=== PATIENT | female | born 1995 | race Caucasian/White ===

== ENCOUNTER 2016-10-12 10:04 | Inpatient (IN) ==
--- NOTE | 2016-10-12 10:32 | EKG Report ---
Test Performed on : 10/12/2016 10:29:15 AM Test Reason : Syncope/SZ Blood Pressure : / mmHG Vent. Rate : 124 BPM Atrial Rate : 124 BPM P-R Int : 136 ms QRS Dur : 084 ms QT Int : 406 ms P-R-T Axes : 058 -17 049 degrees QTc Int : 583 ms Sinus tachycardia. Nonspecific T wave abnormality Abnormal ECG When compared with ECG of 30-JAN-2016 21:51, Sinus rhythm. has replaced Ectopic atrial rhythm. Vent. rate has increased BY 61 BPM Nonspecific T wave abnormality now evident in Lateral leads Unconfirmed Result
[2016-10-12] MEDS ORDERED: MAGNESIUM SULFATE 2 GM/S.W.I. 2 GM/50 ML IVPB IV ONE (10:42)
[2016-10-12] MEDS ORDERED: NS 1,000 ML IV ONE (10:42)
--- NOTE | 2016-10-12 11:08 | ED EKG INTERP ---
This chart was entered by Vera Pandey Scribe, acting as scribe for Yfn Leon MD. EKG Interpretation - EKG Time of EKG reading by physician:: 10:29 EKG Read and Signed by:: Yfn Leon EKG Interpretation (*Must complete 3 of following elements*): Abnormal Rate: 124 Rhythm: sinus tachycardia [place]: normal QRS: normal [place] Interval: normal ST Wave: non-specific ST changes Comments: nonspecific T wave abnormality - QT prolongation Attestation - Physician/ TEGAN Attestation Patient care was provided by Advanced Practice Provider:: No The physician spent face to face time with patient:: Yes Advanced Practice Provider documentation review:: Supervising physician onsite and consulted in the evaluation and care of this patient. The physician did have a face to face encounter with the patient. This chart was documented by the indicated scribe, (Vera Pandey Scribe) and accurately reflects the services I performed and decisions made by me, Yfn Leon MD, as attested by the provider's signature.
[2016-10-12 11:09] LABS: MANUAL DIFF NEEDED? NO
--- NOTE | 2016-10-12 11:27 | Diag Imaging Result Doc PS360 ---
EXAM: CHEST-PORTABLE HISTORY: CP TECHNIQUE: Portable AP COMPARISON: 01/30/2012 FINDINGS: The lungs are well expanded. The heart is not enlarged. The vessels are not distended. There are no infiltrates. No pleural effusions identified. IMPRESSION: Negative chest. Electronically signed by Al Sr 10/12/2016 11:25 AM
[2016-10-12 11:28] LABS: URINE CULTURE PL NEEDED? NO
[2016-10-12 11:30] LABS: AGAP 10; ALBUMIN 4.8 g/dL (3.5-5.0); ALKALINE PHOSPHATASE 117 U/L (32-104); BUN 12 mg/dL (8-22); CALCIUM 9.4 mg/dL (8.8-10.2); CHLORIDE 103 mmol/L (98-107); CK PROFILE 59 U/L (24-173); COSMO 275; GOT 20 U/L (10-30); GPT 24 U/L (10-36); MAGNESIUM 1.8 mg/dL (1.5-2.7); POTASSIUM 3.6 mmol/L (3.5-5.1); SODIUM 138 mmol/L (136-145); TCO2 25 mmol/L (25-35); TOTAL PROTEIN 8.3 g/dL (6.3-8.3)
[2016-10-12 11:33] LABS: BILIRUBIN URINE NEGATIVE (NEGATIVE); BLOOD URINE NEGATIVE (NEGATIVE); CLARITY CLEAR (CLEAR); COLOR YELLOW; GLUCOSE URINE NEGATIVE (NEGATIVE); LEUKOCYTES URINE NEGATIVE (NEGATIVE); NITRITE URINE NEGATIVE (NEGATIVE); PROTEIN URINE NEGATIVE (NEGATIVE); UROBILINOGEN URINE NORMAL
[2016-10-12 11:35] LABS: URINE EPITHELIAL CELLS <10 /HPF (<10); URINE RBC <10 /HPF (<10)
[2016-10-12 11:36] LABS: UR AMPHETAMINES QUAL NONE DETECTED (NONE DETECT); UR BARBITUATES QUAL NONE DETECTED (NONE DETECT); UR BENZODIAZEPIN QUAL NONE DETECTED (NONE DETECT); UR CANNABINOIDS QUAL NONE DETECTED (NONE DETECT); UR COCAINE QUAL NONE DETECTED (NONE DETECT); UR MDMA QUAL NONE DETECTED (NONE DETECT); UR METHADONE QUAL NONE DETECTED (NONE DETECT); UR METHAMPHETAMINE QUAL NONE DETECTED (NONE DETECT); UR OPIATES QUAL NONE DETECTED (NONE DETECT); UR OXYCODONE QUAL NONE DETECTED (NONE DETECT); UR PCP QUAL NONE DETECTED (NONE DETECT); UR TCA QUAL NONE DETECTED (NONE DETECT)
[2016-10-12 11:55] LABS: INR 0.95 (0.86-1.15); PROTIME 13.4 Seconds (12.1-15.5)
[2016-10-12 11:56] LABS: PTT PL 29.6 Seconds (22.6-43.9)
[2016-10-12 11:59] LABS: URINE SOURCE CLEAN CATCH
[2016-10-12 12:14] LABS: HEMATOCRIT 40.2 % (37.0-47.0); HEMOGLOBIN 14.3 g/dL (12.0-16.0); MCHC 35.6 g/dL (33-37); MCV 85.2 FL (81-99); RBC 4.72 XMIL (4.2-5.4)
[2016-10-12 12:16] LABS: MCH 30.3 PG (27-31); PLT 249 X1000 (130-400)
[2016-10-12 12:18] LABS: MPV 8.7 FL (7.4-10.4)
[2016-10-12 12:19] LABS: LYMPH% 12.2 % (20.5-51.1)
[2016-10-12 12:20] LABS: MONO% 5.8 % (1.7-9.3)
--- NOTE | 2016-10-12 12:52 | EKG Report ---
Test Performed on : 10/12/2016 12:44:10 PM Test Reason : Palpitations, QT prolongation Blood Pressure : / mmHG Vent. Rate : 110 BPM Atrial Rate : 110 BPM P-R Int : 154 ms QRS Dur : 088 ms QT Int : 340 ms P-R-T Axes : 058 -16 047 degrees QTc Int : 460 ms Sinus tachycardia. Septal infarct , age undetermined Abnormal ECG When compared with ECG of 12-OCT-2016 10:29, No significant change was found Unconfirmed Result
--- NOTE | 2016-10-12 13:05 | ED EKG INTERP ---
This chart was entered by Vera Pandey Scribe, acting as scribe for Yfn Leon MD. EKG Interpretation - EKG # 2 Time of EKG reading by physician:: 12:44 EKG Read and Signed by:: Yfn Leon EKG Interpretation (*Must complete 3 of following elements*): Abnormal Rate: 110 Rhythm: sinus tachycardia [place]: normal QRS: normal [place] Interval: normal ST Wave: normal Comments: septal infarct, age undetermined - repeat EKG - improving. Attestation - Physician/ TEGAN Attestation Patient care was provided by Advanced Practice Provider:: No The physician spent face to face time with patient:: Yes Advanced Practice Provider documentation review:: Supervising physician onsite and consulted in the evaluation and care of this patient. The physician did have a face to face encounter with the patient. This chart was documented by the indicated scribe, (Vera Pandey Scribe) and accurately reflects the services I performed and decisions made by me, Yfn Leon MD, as attested by the provider's signature.
--- NOTE | 2016-10-12 13:07 | PROVIDER DOCUMENTATION ---
This chart was entered by Vera Pandey Scribe, acting as scribe for Yfn Leon MD. HPI-Neurological Disorder - General Chief Complaint: Seizure Stated Complaint: HAD A SEIZURE WHILE AT WORK Time Seen by Provider: 10/12/16 10:17 Source: patient Allergies/Adverse Reactions: Patient Allergies Allergy/AdvReac Type Severity Reaction Status Date / Time Sulfa (Sulfonamide Allergy ABDOMINAL Verified 01/30/16 21:27 Antibiotics) PAIN STEROIDS AdvReac HIVES Uncoded 10/12/16 10:12 Home Medications: Home Medication List Medication Instructions Recorded Confirmed Last Taken Type NK [No Home Medications] 10/12/16 10/12/16 Unknown History - History of Present Illness-Neuro Nature of Presenting Problem: Patient is a 21 year old female who presents in the ED with complaints of seizure. She states she has a history of seizures, but states she is no longer on medication for them per her neurologist. She also states she was taking Depakote but "had chunks of her stomach lining coming up while taking it as well as a strange sensation in her throat." She reports she was at work this morning when her coworkers saw her staring out into space and then suddenly began crying, and reports this is not typical of her usual seizures. She also reports she did not fall when she seized but was caught by a coworker before she could fall. She denies any other symptoms. Headache Location: denies: frontal, temporal, occipital, parietal, global, other Severity: reports: moderate Onset/Duration: reports: abrupt, just prior to arrival Timing: reports: gone now Context: reports: seizure activity Character of Altered Mental Status: denies: N/A, disoriented, unchanged from baseline, confused, combative, agitated, trouble concentrating, unresponsive, seizure activity, decreased responsiveness, other Any recent trauma/injury?: denies: none, minor, major, to head, to neck, other Character of Deficits: denies: new weakness, altered sensation, vision problem/ glaucoma, impaired speech, impaired swallowing, decreased ability to stand, decreased ability to walk, falling New weakness or altered sensation location:: denies: none, RUE, RLE, LUE, LLE, right facial, left facial, general (diffuse), ascending, other Cognitive Baseline: alert, oriented x3 Gait Baseline: walks without assistance Associated Symptoms: reports: denies symptoms Similar Symptoms Previously?: Yes (hx of seizures) Recently seen or treated by another doctor?: No - Seizure First time to have a seizure?: No Witnessed seizure?: Yes How many seizure episodes?: 1 Duration of episode? (mins): 1 Episode details: denies: unknown duration, unknown number, details of seizure cannot be obtained, details of seizure cannot be verified Episode Frequency: occasional episodes Preceding symptoms/context:: none Character of Seizure: reports: staring Post-ictal Symptoms: reports: none Seizure related injury: none Review of Systems - Adult - REVIEW OF SYSTEMS - ADULT Constitutional: reports: no symptoms reported Eyes: reports: no symptoms reported Ears, Nose, Mouth & Throat: reports: no symptoms reported Cardiovascular: reports: no symptoms reported Respiratory: reports: no symptoms reported Gastrointestinal: reports: no symptoms reported Genitourinary: reports: no symptoms reported Musculoskeletal: reports: no symptoms reported Integumentary: reports: no symptoms reported Neurological: reports: seizure Psychiatric: reports: no symptoms reported Endocrine: reports: no symptoms reported Hematologic/Lymphatic: reports: no symptoms reported Allergic/Immunologic: reports: no symptoms reported All Other Systems: Reviewed and Negative Past History - Adult - PAST MEDICAL HISTORY-ADULT Review of Records: reports: Old Records Reviewed, Nursing Assessment Review, Medications Reviewed Major Childhood Illnesses: reports: denies history Cardiovascular: reports: denies history Respiratory: reports: denies history Gastrointestinal: reports: ulcer Obstetrical/Gynecological: reports: denies history Genitourinary: reports: denies history Musculoskeletal: reports: denies history Neurological: reports: headaches/migraines, Seizures/Epilepsy Psychiatric: reports: anxiety, ptsd, other (panic attacks) Endocrine/Immune: reports: denies history Other Conditions: reports: denies history - PRIOR SURGERIES/PROCEDURES Surgical/Procedure History: reports: other (oral surgery, cyst in neck removed) - IMMUNIZATION STATUS Childhood Immunizations: See Nurse Assessment Flu Vaccine: See Nurse Assessment - FAMILY HISTORY Family History: reviewed, not pertinent - SOCIAL HISTORY Smoking: denies Substance Use: none/never Alcohol Use Frequency: never Living Situation: family Physical Exam- Neurological - Physical Exam-Neuro Initial Vital Signs Reviewed: Yes General Appearance: alert, no apparent distress Eye Exam: bilateral eye: normal inspection, PERRL, EOMI HENMT: normocephalic/atraumatic, moist mucous membranes Head Injury: no evidence of injury Neck: non-tender, full range of motion, supple, normal inspection Respiratory: chest non-tender, lungs clear, normal breath sounds, no pleuratic chest pain, no respiratory distress, no accessory muscle use Cardiovascular: normal peripheral pulses, no edema, no gallop, no JVD, no murmur , tachycardia Abdominal Exam: non tender, soft, no organomegaly, no pulsatile mass Lymphatic: no adenopathy Extremity: normal range of motion, non-tender, no pedal edema, no calf tenderness, pelvis stable notereader Exam: normal hearing, normal speech, PERRL Coordination/Gait: normal finger to nose, normal gait Motor/Sensory: no motor deficit, no sensory deficit, no pronator drift Neurologic: grossly normal, no motor/sensory deficits Integumentary: normal color, normal turgor, warm/dry Psych/Mental Status: normal mood/affect, normal thought content, normal thought process, oriented x 3 - Glascow Coma Scale Best Eye Response: (4) open spontaneously Best Verbal Response: (5) oriented Best Motor Response: (6) obeys commands Total Glascow Score: 15 Progress - PLAN OF CARE/RESULTS Progress/Plan/Lab Results: Vital Signs - 8 hr 10/12/16 10:06 10/12/16 11:19 10/12/16 11:50 Temperature 97.6 F Pulse Rate 117 H 123 H 120 H Respiratory Rate 20 16 19 Blood Pressure 141/096 136/89 125/81 O2 Sat by Pulse Oximetry 96 99 100 10/12/16 12:26 10/12/16 12:43 10/12/16 12:59 Temperature Pulse Rate 110 H 112 H 109 H Respiratory Rate 14 16 14 Blood Pressure 121/72 116/79 134/85 O2 Sat by Pulse Oximetry 100 99 100 Laboratory Results - last 24 hr 10/12/16 10/12/16 10/12/16 11:04 11:04 11:04 WBC RBC Hgb Hct MCV MCH MCHC RDW Std Deviation Plt Count MPV Neut % (Auto) Lymph % (Auto) [place] % (Auto) Eos % (Auto) Baso % (Auto) Neut # (Auto) Lymph # (Auto) [place] # (Auto) Eos # (Auto) Baso # (Auto) PT INR APTT (Factor Assay) D-Dimer Sodium 138 Potassium 3.6 Chloride 103 Carbon Dioxide 25 Anion Gap 10 BUN 12 Creatinine 0.6 Estimated GFR/1.73 m2 > 60 BUN/Creatinine Ratio 20 Glucose 94 Calculated Osmolality 275 Calcium 9.4 Magnesium 1.8 Total Bilirubin 0.20 AST 20 ALT 24 Alkaline Phosphatase 117 H Creatine Kinase 59 Troponin T < 0.010 Odl-R-Ylcjerbnxpl Pept 32 Total Protein 8.3 Albumin 4.8 Globulin 4.0 Albumin/Globulin Ratio 1.0 Urine Source Urine Color Urine Clarity Urine pH Ur Specific [place] Urine Protein Urine Ketones Urine Blood Urine Nitrite Urine Bilirubin Urine Urobilinogen Urine Microscopic RBC Urine WBC Ur Epithelial Cells Urine Bacteria Urine Glucose Urine Test Urine Opiates Screen Ur Oxycodone Screen Urine Methadone Screen Ur Barbituates Screen Ur Tricyclics Screen Ur Phencyclidine Scrn Ur Amphetamines Screen U Methamphetamines Scrn Urine MDMA Screen U Benzodiazepines Scrn Urine Cocaine Screen U Cannabinoids Screen 10/12/16 10/12/16 10/12/16 11:04 11:04 11:25 WBC 6.50 RBC 4.72 Hgb 14.3 Hct 40.2 MCV 85.2 MCH 30.3 MCHC 35.6 RDW Std Deviation 12.4 Plt Count 249 MPV 8.7 Neut % (Auto) 82.0 H Lymph % (Auto) 12.2 L [place] % (Auto) 5.8 Eos % (Auto) Not Reportable Baso % (Auto) Not Reportable Neut # (Auto) 5.30 Lymph # (Auto) 0.80 L [place] # (Auto) 0.40 Eos # (Auto) Not Reportable Baso # (Auto) Not Reportable PT 13.4 INR 0.95 APTT (Factor Assay) 29.6 D-Dimer < 0.22 L Sodium Potassium Chloride Carbon Dioxide Anion Gap BUN Creatinine Estimated GFR/1.73 m2 BUN/Creatinine Ratio Glucose Calculated Osmolality Calcium Magnesium Total Bilirubin AST ALT Alkaline Phosphatase Creatine Kinase Troponin T Lwv-K-Msyuemrfzes Pept Total Protein Albumin Globulin Albumin/Globulin Ratio Urine Source CLEAN CATCH Urine Color YELLOW Urine Clarity CLEAR Urine pH 6.0 Ur Specific [place] 1.010 Urine Protein NEGATIVE Urine Ketones NEGATIVE Urine Blood NEGATIVE Urine Nitrite NEGATIVE Urine Bilirubin NEGATIVE Urine Urobilinogen NORMAL Urine Microscopic RBC <10 Urine WBC NEGATIVE Ur Epithelial Cells <10 Urine Bacteria 1+ Urine Glucose NEGATIVE Urine Test Urine Opiates Screen Ur Oxycodone Screen Urine Methadone Screen Ur Barbituates Screen Ur Tricyclics Screen Ur Phencyclidine Scrn Ur Amphetamines Screen U Methamphetamines Scrn Urine MDMA Screen U Benzodiazepines Scrn Urine Cocaine Screen U Cannabinoids Screen 10/12/16 10/12/16 11:25 11:25 WBC RBC Hgb Hct MCV MCH MCHC RDW Std Deviation Plt Count MPV Neut % (Auto) Lymph % (Auto) [place] % (Auto) Eos % (Auto) Baso % (Auto) Neut # (Auto) Lymph # (Auto) [place] # (Auto) Eos # (Auto) Baso # (Auto) PT INR APTT (Factor Assay) D-Dimer Sodium Potassium Chloride Carbon Dioxide Anion Gap BUN Creatinine Estimated GFR/1.73 m2 BUN/Creatinine Ratio Glucose Calculated Osmolality Calcium Magnesium Total Bilirubin AST ALT Alkaline Phosphatase Creatine Kinase Troponin T Aou-Y-Vlujclbawpj Pept Total Protein Albumin Globulin Albumin/Globulin Ratio Urine Source Urine Color Urine Clarity Urine pH Ur Specific [place] Urine Protein Urine Ketones Urine Blood Urine Nitrite Urine Bilirubin Urine Urobilinogen Urine Microscopic RBC Urine WBC Ur Epithelial Cells Urine Bacteria Urine Glucose Urine Test NEGATIVE Urine Opiates Screen NONE DETECTED Ur Oxycodone Screen NONE DETECTED Urine Methadone Screen NONE DETECTED Ur Barbituates Screen NONE DETECTED Ur Tricyclics Screen NONE DETECTED Ur Phencyclidine Scrn NONE DETECTED Ur Amphetamines Screen NONE DETECTED U Methamphetamines Scrn NONE DETECTED Urine MDMA Screen NONE DETECTED U Benzodiazepines Scrn NONE DETECTED Urine Cocaine Screen NONE DETECTED U Cannabinoids Screen NONE DETECTED Orders Category Date Time Status Cardiac Monitoring DIRECTED Care 10/12/16 10:46 Active Saline Loc NOW Care 10/12/16 10:46 Active CHEST-PORTABLE [RAD] Stat Exams 10/12/16 10:42 Completed CBC WITH ELECTRONIC DIFF [HEME] Stat Lab 10/12/16 11:04 Completed CK PROFILE [SP CHEM] Stat Lab 10/12/16 11:04 Completed COMPREHENSIVE METABOLIC PANEL [CHEM] Stat Lab 10/12/16 11:04 [address] D-DIMER PL [COAG] Stat Lab 10/12/16 11:04 Completed MAGNESIUM [CHEM] Stat Lab 10/12/16 11:04 Completed TEST-URINE [PREG] Stat Lab 10/12/16 11:25 Completed PRO B-NATRIURETIC PEPTIDE Stat Lab 10/12/16 11:04 Completed PR[address]IME WITH INR PL [COAG] Stat Lab 10/12/16 11:[address] [COAG] Stat Lab 10/12/16 11:04 Completed TROPONIN T Stat Lab 10/12/16 11:04 Completed UDS [URINE DRUG SCREEN PL] Stat Lab 10/12/16 11:[address] W/POSS RFLX CULT [URINALYSIS] Stat Lab 10/12/16 11:25 Completed 0.9% Sodium Chloride Inj [Ns] 1,000 ml Med 10/12/16 10:42 Discontinued IV 999 mls/hr Magnesium Sulfate 2 gm/S.w.i. [Magnesium Sulfate 2 gm/S Med 10/12/16 10:42 Discontinued .w.i] 2 gm in 50 ml IV NOW EKG [EKG] Stat Ther 10/12/16 10:20 Draft EKG [EKG] Stat Ther 10/12/16 12:41 Draft Result Diagrams: 10/12/16 11:04 10/12/16 11:04 - REASSESSMENT Reassessment #1 Time Reassessed: 13:05 Status: improving (Pt feels better, asymptomatic since ED arrival. Repeated EKG showed the prolonged QT resolving after 1L NS IV and 2gm of Magnesium.) - XRAY 1 XRAY Study: Chest Impression: Normal XRAY Interpretation: negative chest - CONSULTS/PCP/HOSPITALIST Notification #1 *Consult/PCP/Hospitalist*: Dr. Cabrera Time Discussed: 13:06 Consult Disposition: Will see in ED, Admit Departure - Departure Date of Disposition Decision: 10/12/16 Time of Disposition Decision: 13:00 DIAGNOSIS: Syncope, QT prolongation Disposition: ADMITTED INPATIENT 09 Certified Medical Emergency: Emergent Condition: Stable Referrals and Follow-Ups: None,PCP [Primary Care Provider] - - Critical Care Note This patient required my direct & personal management of CC.: No Attestation - Physician/ TEGAN Attestation Patient care was provided by Advanced Practice Provider:: No The physician spent face to face time with patient:: Yes Advanced Practice Provider documentation review:: Supervising physician onsite and consulted in the evaluation and care of this patient. The physician did have a face to face encounter with the patient. This chart was documented by the indicated scribe, (Vera Pandey Scribe) and accurately reflects the services I performed and decisions made by me, Yfn Leon MD, as attested by the provider's signature.
[2016-10-12] MEDS ORDERED: NAPROSYN PO PRN (15:59)
--- NOTE | 2016-10-12 16:34 | HISTORY AND PHYSICAL ---
CHIEF COMPLAINT: Syncope. HISTORY OF PRESENT ILLNESS: This is a 21-year-old, female who presented to the emergency room after having a witnessed syncopal attack. 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 She was sitting at the desk, and it was reported that she "just had a blank stare on her face, and did not answer ". After a short time, she was able to answer. She had no seizure activity noted. She does report having intermittent episodes like this at home , where she states that her chest will feel real tight, it will feel full. She can feel that fullness going up into her throat, then her heart rate speeds up and, if she does not sit down, she will pass out. It does resolve spontaneously. Her first EKG revealed sinus tachycardia at 124, with a QTc of 583. he was given magnesium 2 g IV , with repeat EKG having a QTc of 460. Shortly after being admitted on the floor, she was placed on telemetry, and she had another witnessed episode of "blanking out" while lying in the bed. Telemetry revealed sinus tachycardia at a rate of 120, and then it did increase to 175 and 185 at the time that she did not respond. This lasted about 1-1/2 minutes, and heart rate dropped back down to the 140's to 150's, and she was alert and oriented. PAST MEDICAL HISTORY: Seizures during , migraines, history of stomach ulcers, PTSD. PAST SURGICAL HISTORY: Tonsillectomy, oral surgery. SOCIAL HISTORY: She denies alcohol, tobacco, or illicit drug use. ALLERGIES: Sulfa, which causes abdominal pain, and steroids which cause hives. HOME MEDICATIONS: None. REVIEW OF SYSTEMS: A 14-point review of systems is discussed with patient, with pertinent positives stated in the HPI. She denied shortness of breath, cough, fever, chills, PND, orthopnea, nausea, vomiting, diarrhea, constipation, black or bloody vomitus, black or bloody stools, hematuria, dysuria, frequency, urgency. PHYSICAL EXAMINATION: GENERAL: This is a 21-year-old female who is sitting up in the bed, in no distress. VITAL SIGNS: Blood pressure is 119/72, with a heart rate varying 114 to 140's, respirations are 18, temperature is 98.5 degrees, with room air saturation of 100%. HEENT: Head is normocephalic, atraumatic. Pupils equal, round, react to light. EOMS are intact. Sclerae anicteric. Mucous membranes are moist. NECK: Supple. Trachea midline. CARDIOVASCULAR: Regular rate and rhythm. Tachycardic. S1 and S2 appreciated. PULMONARY: Breath sounds are clear. No increased work of breathing noted. GASTROINTESTINAL: Abdomen is soft, nontender and nondistended, with bowel sounds in all 4 quadrants. EXTREMITIES: No clubbing, cyanosis, or edema. Calves nontender. Pulses are palpable x4. NEUROLOGIC: She is alert and oriented x3, with cranial nerves 2 through 12 grossly intact. DIAGNOSTICS: WBC is 6.5, with hemoglobin 14.3, hematocrit 40.2, and platelets of 249,000. Sodium is 138, potassium 3.6, BUN is 12, creatinine 0.6, with a glucose of 94. Urinalysis is essentially negative. Urine drug screen is negative. EKG as stated in the HPI. ASSESSMENT: 1. Symptomatic supraventricular tachycardia. 2. Syncopal episodes, secondary to #1. 3. Headache, with a history of migraines. PLAN: She will be admitted to the floor, placed on telemetry. We will consult Cardiology. We will continue to trend her electrolytes. Further treatments pending hospital course. Dictated by MORGAN Christian for Andre Cabrera MD cc: MORGAN Christian MD [facility]
[2016-10-12 17:57] LABS: HEMATOCRIT 36.6 % (37.0-47.0); HEMOGLOBIN 12.6 g/dL (12.0-16.0); MCH 29.5 PG (27-31); MCHC 34.4 g/dL (33-37); MCV 85.7 FL (81-99); MPV 9.1 FL (7.4-10.4); RBC 4.27 XMIL (4.2-5.4)
[2016-10-12] MEDS: NS 1,000 ML IV SCH (18:39)
[2016-10-13] MEDS: NS 1,000 ML IV SCH (05:23)
--- NOTE | 2016-10-13 06:03 | EKG Report ---
Test Performed on : 10/13/2016 05:42:20 AM Test Reason : SVT Blood Pressure : / mmHG Vent. Rate : 075 BPM Atrial Rate : 075 BPM P-R Int : 136 ms QRS Dur : 084 ms QT Int : 416 ms P-R-T Axes : 063 002 036 degrees QTc Int : 464 ms Normal sinus rhythm. with sinus arrhythmia. Normal ECG When compared with ECG of 12-OCT-2016 12:44, (Unconfirmed) Criteria for Septal infarct are no longer present Confirmed by Dmitri Banks MD ([id number]) on 10/26/2016 6:48:37 PM
[2016-10-13 06:52] LABS: AGAP 9; ALBUMIN 3.8 g/dL (3.5-5.0); ALKALINE PHOSPHATASE 93 U/L (32-104); BUN 9 mg/dL (8-22); CALCIUM 8.2 mg/dL (8.8-10.2); CHLORIDE 109 mmol/L (98-107); COSMO 277; GOT 19 U/L (10-30); GPT 20 U/L (10-36); MAGNESIUM 1.9 mg/dL (1.5-2.7); POTASSIUM 3.7 mmol/L (3.5-5.1); SODIUM 140 mmol/L (136-145); TCO2 22 mmol/L (25-35)
--- NOTE | 2016-10-13 10:53 | CONSULTATION ---
DATE OF CONSULTATION: 10/12/2016 CHIEF COMPLAINT: Syncope, tachycardia. HISTORY: Ms. 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 She was at work today when all of a sudden she had an episode of what she describes as the room spinning around her followed by loss of consciousness. The patient felt some chest tightness at the time of the incident. The patient was taken to the emergency room where they did an EKG that shows sinus rhythm, sinus tachycardia. Initial rate at 10:29 a.m. was 124 beats per minute. Subsequently at 12:44 p.m., it was 110 beats per minute. The patient says that she was given IV saline that did not seem to make any real difference, however, her heart rate has certainly normalized and she is basically feeling fine. I am seeing her at about 8 p.m. They have just completed a bedside echocardiogram that I have reviewed with her and it looks basically normal in my interpretation. The patient says that she is not having any abdominal pain or nausea at this time. PAST MEDICAL HISTORY: Her past medical history is positive for recurrent episodes of loss of consciousness. According to records that we have in the emergency room, she has been seen multiple times between 03/2013 through 09/2016 with noted diagnosis of loss of consciousness, dizziness, syncope, passing out spells, headache, nausea and potential seizure in 01/2016 and this present admission. The patient states that she has been referred to [facility] for opinion. They did EEGs on her. They could not diagnose seizure in her. She was seen by Dr. Benitez in [place], neurologist, and he did also EEGs. At some point, she was placed on antiseizure medication which apparently she could not tolerate. The patient had an episode of preeclampsia in connection with her back in 11/2015. Her history is also positive for recurrent headaches. In fact, she has to take Aleve at least twice a month for intense headaches. About 3 times a week, she does have some degree of headache. She has been diagnosed with iron deficiency anemia by her primary doctor in the past and that has been replaced. PAST SURGICAL HISTORY: She had to undergo, I believe, at some point. She has had previous tonsillectomy, adenoidectomy. She has had deviated nasal septum. HOME MEDICATIONS: At this time, she is not taking any prescription medicine.She takes Aleve OTC. ALLERGIES: She is allergic to sulfa drugs and corticosteroids. Reportedly, she has had sinus allergies in the past and also as a child, she has exercise-induced asthma. SOCIAL HISTORY: She lives with her . She has one child. She is not a smoker nor a drinker. She does not use illicit drugs. FAMILY HISTORY: Positive in her mother for multiple sclerosis. No other issues. REVIEW OF SYSTEMS: Review of systems, besides what I have reported, is noncontributory. PHYSICAL EXAMINATION: Today, her blood pressure is 147/81, temperature 98.5, pulse right now is about 90, respirations 18. General: She is awake, alert, in no distress. HEENT: Unremarkable. Chest: Clear to auscultation and percussion. Heart: Heart sounds regular and rhythmic. I do not hear a gallop or murmur. Abdomen: Nontender, soft. No masses, no hepatomegaly. Extremities: Good pulses. No edema. Neurological exam: She moves all 4 extremities, follows commands. BLOOD WORK: Sodium 138, potassium 3.6, BUN 12, creatinine 0.6. ProBNP is 32. D-dimer less than 0.22. PT and PTT normal. Hemoglobin 12.6, white count 6900. IMPRESSION: 1.Patient presenting with recurrent syncope preceded by what appears to be objective vertigo. This appears to associate with sinus tachycardia. It is unclear as to whether or not this had anything to do with orthostatic changes. The patient apparently has a long history of these episodes going back to 2013 and she has been already evaluated at tertiary medical center, [place], with no clear-cut explanation. 2.Paroxysmal, possibly inappropriate sinus tachycardia. this coincides with episodes of loss of consciousness. whether these episodes are triggered by catecholamines or is neurogenic remains to be determined. 3. Recurrent chronic headaches, Migraine like? RECOMMENDATIONS: From a Cardiology viewpoint, I would suggest to obtain a treadmill exercise stress test to determine her exercise capacity and see if we can provoke symptoms by performing exercise and also assess her blood pressure response. I would consider obtaining a 24- hour urine collection for catecholamines, metanephrines as a workup for pheochromocytoma which is probably not likely in this particular setting; however, the episodic hypotension and tachycardiawith recurrent headaches could be an indication of increased catecholamine output. We will discuss this with the Primary Service and come up with a plan. cc: David Iniguez MD [facility]
[2016-10-13 12:03] VITALS: BP 106/66
--- NOTE | 2016-10-13 17:55 | DISCHARGE SUMMARY ---
ADMISSION DATE: 10/12/2016 DISCHARGE DATE: 10/13/2016 DIAGNOSES: 1. Symptomatic tachycardia. 2. Presyncope/syncopal episode. 3. Headache. HOSPITAL COURSE: The patient was admitted to the hospital from the ER after having an episode of what she described as the room spinning around followed by loss of consciousness. shortly after arriving on the floor, She had an episode witnessed by the nursing staff described as ": just looking straight ahead and not speaking.": Telemetry revealed a heart rate in the 120s that slowly progressed to the 180s then with slowing of the heart rate back down to the 110s to 120s.over a 2 minute time period. reportedly , she stared straight ahead not answering questions when HR was 180s to 190s , returning to normal as HR decreased to 120s. She had no seizure activity. Dr. Iniguez was consulted and felt that in light of a normal echocardiogram with no orthostatics changes and no seizure activity, that this could be triggered by catecholamine or neurogenic release. In fact, she had a negative evaluation for the same at [place] >5 years ago. PHYSICAL EXAMINATION: Cardiovascular: Regular rate and rhythm. S1, S2 appreciated. Pulmonary: Breath sounds are clear. No increased work of breathing noted. Gastrointestinal: Abdomen is soft, nontender, nondistended. Bowel sounds in all 4 quadrants. Extremities: No clubbing, cyanosis, or edema. Calves nontender. Pulses palpable x4. Neurologic: She is alert and oriented x3. Cranial nerves 2-12 grossly intact. Discharge Vital Signs: Blood pressure is 106/66, with a heart rate of 100, respirations are 18, temperature is 97.7 degrees oral. Room air saturations 100%. DISCHARGE MEDICATIONS: None. DISCHARGE FOLLOWUP: Dr. Iniguez, the office will contact her with a followup appointment. DISPOSITION: She is being discharged home in stable condition with family members. TIME SPENT: This is a greater than 30 minute discharge. Dictated by MORGAN Christian for Andre Cabrera MD cc: MORGAN Christian MD [facility]
--- NOTE | 2016-10-13 18:43 | ECHO REPORT ---
ORDER DATE: 10/12/2016 INTERPRETING PHYSICIAN: Dr. Iniguez REQUESTING PHYSICIAN: CLINICAL INDICATIONS: A 21-year-old female with supraventricular tachycardia, syncope. M-MODE MEASUREMENTS: Right ventricle: 2.2 cm. Left ventricle end diastole: 4.0 cm. Left ventricle end systole: 2.6 cm. Posterior wall: 0.7 cm. Interventricular septum: 0.7 cm. Left atrium: 2.6 cm. Aortic root: 2.3 cm. SUMMARY OF 2-DIMENSIONAL IMAGING: The left ventricular function is normal. Ejection fraction 64%. The ventricular chamber is not dilated. The right ventricle is normal. The atria appear to be normal. The inferior vena cava is not dilated. There is no pericardial effusion. The aortic valve has 3 cusps. It is morphologically normal. Color flow mapping normal. The mitral valve looks normal. Color flow mapping unremarkable. Pulse wave Doppler of mitral inflow is normal. Tissue Doppler of septal and lateral mitral annulus averages 14 cm per second. There is no diastolic dysfunction. Pulmonary venous flow is normal. The tricuspid valve looks normal with a mild degree of regurgitation. Pulmonary pressure estimated to be within normal limits. The pulmonic valve looks normal. Color flow mapping unremarkable. There is no evidence of masses or thrombus. This study appears to be within normal range. Clinical correlation recommended. cc: MD Ingrid Ellis CRNP
== END 2016-10-13 15:32 | disposition home or self-care (01) ==
LOC: P.ED 10:04 → P.MEDSURG 13:32
PROVIDERS: ATTEND Family Medicine